=== PATIENT | male | born 1940 | race Caucasian/White ===

== ENCOUNTER 2017-07-16 04:59 | Inpatient (IN) ==
[2017-07-10 17:08] LABS: Basophils # (Auto) 0 K/mcL (0.0-0.3); Basophils % (Auto) 0.5 % (0.0-2.0); Eosinophils # (Auto) 0.2 K/mcL (0.0-0.7); Eosinophils % (Auto) 2.1 % (0.0-7.0); Lymphocytes # (Auto) 1.7 K/mcL (1.5-4.8); Lymphocytes % (Auto) 19.9 % (15.5-49.0); Mean Cell Volume 86.6 fL (80.0-100.0); Mean Corpuscular HGB Conc 32.4 g/dL (31.0-36.0); Mean Corpuscular Hemoglobin 28.1 pg (26.0-34.0); Monocytes # (Auto) 0.6 K/mcL (0.1-0.9); Monocytes % (Auto) 7.5 % (1.0-12.0); Platelet Count 256 K/mcL (140-440); RBC 4.75 M/mcL (4.50-5.90); Red Cell Distribution Width 17.6 % (11.5-14.5)
[2017-07-10 17:18] LABS: Blood Urea Nitrogen 36 mg/dl (8-23)
[2017-07-16] MEDS ORDERED: ACETAMINOPHEN 500 MG TABLET PO SCH (06:00)
[2017-07-16] MEDS ORDERED: CELECOXIB 200 MG CAPSULE PO SCH (06:00)
[2017-07-16] MEDS ORDERED: ceFAZolin 1 GM VIAL IV SCH (06:00)
[2017-07-16] MEDS ORDERED: PREGABALIN 75 MG CAPSULE PO SCH (06:00)
[2017-07-16] MEDS ORDERED: oxyCODONE 10 MG TAB.ER.12H PO SCH (06:00)
[2017-07-16 07:56] LABS: Appearance,Urine CLEAR; Bilirubin,Urine NEG (NEG); Color,Urine YELLOW; Glucose,Urine (UA) NEGATIVE (NEG); Leukocyte Esterase,Urine NEG /uL (NEG); Nitrate,Urine NEG (NEG); Protein,Urine NEG (NEG); Specific Gravity,Urine 1.012 (1.000-1.035); Urine Blood NEG mg/dL (<0.03); Urobilinogen,Urine NEG (NEG)
[2017-07-16] MEDS ORDERED: KETOROLAC 30 MG, ROPIVACAINE HCL/PF 49.5 ML, EPINEPHrine 0.5 MG, 0.9 % SODIUM CHLORIDE ... IJ ONE (08:00)
[2017-07-16] MEDS ORDERED: PROPOFOL 200 MG/20 ML VIAL IV ONE (09:20)
[2017-07-16] MEDS ORDERED: ONDANSETRON 4 MG/2 ML VIAL IV ONE (09:20)
[2017-07-16] MEDS ORDERED: PHENYLEPHRINE 10 MG/ML VIAL IV ONE (09:20)
[2017-07-16] MEDS ORDERED: EPINEPHrine 1 MG/ML AMPUL IJ ONE (09:20)
[2017-07-16] MEDS ORDERED: TRANEXAMIC ACID 1,000 MG/10 ML VIAL IV ONE (09:20)
[2017-07-16] MEDS ORDERED: MIDAZOLAM 2 MG/2 ML VIAL IV ONE (09:20)
[2017-07-16] MEDS ORDERED: KETAMINE 100 MG/ML ML IV ONE (09:20)
[2017-07-16] MEDS ORDERED: GLYCOPYRROLATE 0.2 MG/ML VIAL IV ONE (09:20)
[2017-07-16] MEDS ORDERED: BUPIVACAINE PF 0.5% 30 ML VIAL IJ ONE (09:20)
[2017-07-16] MEDS ORDERED: LIDOCAINE HCL/PF 100 MG/5 ML SYRINGE IV ONE (09:20)
[2017-07-16] MEDS ORDERED: GENTAMICIN SULFATE 800 MG/20 ML VIAL IR ONE (09:46)
[2017-07-16] MEDS ORDERED: MEPERIDINE 25 MG/ML SYRINGE IV PRN (10:11)
[2017-07-16] MEDS ORDERED: METHOCARBAMOL 1,000 MG/10 ML VIAL IV PRN (10:11)
[2017-07-16] MEDS ORDERED: IPRATROPIUM/ALBUTEROL 3 ML AMPUL.NEB NEB PRN (10:11)
[2017-07-16] MEDS ORDERED: ONDANSETRON 4 MG/2 ML VIAL IV PRN ×2 (10:11→10:39)
[2017-07-16] MEDS ORDERED: LACTATED RINGERS 1,000 ML IV SCH (10:15)
--- NOTE | 2017-07-16 10:37 | Brief Operative Note ---
Date of procedure: 07/16/17 Pre-op diagnosis: left knee loose femoral component Post-op diagnosis: same Procedure: Left knee revision femoral component Grafts/Implants: Yes Anesthesia: GETA Surgeon: Colton Cervantes Inventory Transcriber: Angel Burnette Estimated blood loss (cc): 30 Tourniquet Time (Minutes): 35 Specimens Removed/Pathology: none sent Condition: stable Disposition: PACU
[2017-07-16] MEDS ORDERED: MAGNESIUM HYDROXIDE 30 ML ORAL.SUSP PO PRN (10:39)
[2017-07-16] MEDS ORDERED: ACETAMINOPHEN 325 MG TABLET PO PRN (10:39)
[2017-07-16] MEDS ORDERED: BISACODYL 10 MG SUPP.RECT PR PRN (10:39)
[2017-07-16] MEDS ORDERED: TRANEXAMIC ACID 1,000 MG/10 ML VIAL IV SCH (10:39)
[2017-07-16] MEDS ORDERED: POLYETHYLENE GLYCOL 3350 17 GM PACKET PO PRN (10:39)
[2017-07-16] MEDS ORDERED: HYDROmorphone 2 MG/ML SYRINGE IV PRN (10:39)
[2017-07-16] MEDS ORDERED: BENZOCAINE/MENTHOL 1 LOZENGE PO PRN (10:39)
[2017-07-16] MEDS ORDERED: FLEETS ADULT ENEMA PR PRN (10:39)
[2017-07-16] MEDS ORDERED: ACETAMINOPHEN 500 MG TABLET PO PRN (10:41)
[2017-07-16] MEDS: fentaNYL 100 MCG/2 ML VIAL IV PRN ×2 (11:28→11:36)
--- NOTE | 2017-07-16 11:56 | XRay Report ---
CLINICAL INFORMATION: Postop hemiarthroplasty COMPARISON: 01/06/2017 FINDINGS: Medial tibiofemoral compartment hemiarthroplasty is anatomically aligned. No osseous abnormalities. Soft tissues swelling seen as expected. IMPRESSION: Negative Interpreted and Authenticated by: Aubrey Porter 07/16/17
[2017-07-16] MEDS: KETOROLAC 15 MG/ML VIAL IV SCH ×3 (12:05→23:53)
[2017-07-16] MEDS: 0.45 % SODIUM CHLORIDE 1,000 ML IV SCH ×2 (12:20→20:48)
[2017-07-16] MEDS: HYDROcodone/APAP 10/325MG TABLET PO PRN (14:06)
[2017-07-16] MEDS: 0.9 % SODIUM CHLORIDE 10 ML SYRINGE IV SCH ×2 (14:07→23:54)
[2017-07-16] MEDS: DOCUSATE SODIUM 100 MG CAPSULE PO SCH (20:50)
[2017-07-16] MEDS: ASPIRIN 325 MG ENTERIC COATED TABLET PO SCH (20:50)
[2017-07-16] MEDS ORDERED: FAMOTIDINE 20 MG TABLET PO SCH (21:00)
[2017-07-16] MEDS ORDERED: TEMAZEPAM 15 MG CAPSULE PO PRN (21:00)
[2017-07-16] MEDS ORDERED: SENNOSIDES 1 TABLET PO SCH (21:00)
[2017-07-17] MEDS: HYDROcodone/APAP 10/325MG TABLET PO PRN (03:08)
[2017-07-17] MEDS: KETOROLAC 15 MG/ML VIAL IV SCH (05:58)
[2017-07-17] MEDS: 0.9 % SODIUM CHLORIDE 10 ML SYRINGE IV SCH (05:59)
--- NOTE | 2017-07-17 06:39 | Operative Note ---
DATE OF OPERATION: 07/16/2017 PREOPERATIVE DIAGNOSIS: Left knee loosened femoral component of a partial knee. 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 PROCEDURE: Left femoral component revision, poly liner revision or removal. SURGEON: Colton Cervantes MD PLANT TECHNICIAN: Angel Burnette PA-C ANESTHESIA: General LMA anesthesia. COMPLICATIONS: None. DESCRIPTION OF PROCEDURE: The patient was brought to the operating room. We we confirmed the operative site and that the patient only wanted revision of the partial and not to be converted to a total in anyway because of care at home and his concerns of recovery. We then placed Ioban over the skin, exsanguinated the leg and inflated the tourniquet to 250 pounds of pressure. A midline incision was made through his prior scar which then went through the skin and then the medial capsule. 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 The lateral facet of the patella was in good repair as well as the lateral portion of the trochlear groove for the patella. The lateral compartment was completely intact with good articular cartilage and meniscus. ACL and PCL were intact. As we removed the knee through range of motion there was some motion of the femoral component. With pressure we could move the femoral component, confirming it was loose. This was removed using a fish mouthed punch and the poly liner was removed for working room. Once this was done, we then removed the membrane from the bone. This was sent for pathology for white cells. This came back with less than 3 white cells per high powered field, indicating there was no infection. Once the membrane had been debrided from the bone we then used the CarboJet to prepare the bone and drilled holes into the bone for better penetration of the cement. We then used antibiotics impregnated cement for the femoral component. A size 6 femoral component was placed and we kept the femoral component positioned with pressured the entire time, never removing the knee to make sure that there was no motion artifact. Once done it was very secure. We then trialed an 8 and then a 9 poly. The 9 poly seemed to be the most appropriate. We irrigated thoroughly and placed a 9 poly and irrigated thoroughly, and then closed the mid vastus approach with #1 Stratafix x2 sutures. The tourniquet was deflated at approximately 35 minutes. There was no complication. The patient tolerated this well. REED:mary beth Job ID: [id number] Doc ID: [id number] Colton Cervantes MD
[2017-07-17] MEDS ORDERED: OMEPRAZOLE 20 MG CAPSULE PO SCH (07:30)
--- NOTE | 2017-07-17 07:38 | Orthopedic Progress Note ---
Subjective Patient information: Note initiated : 07/17/17 at 7:37 am Service Date, if different from initiated Date: [] Patient: Aubrey Huffman 77 y/o M admitted on 07/16/17 for Revision Partial Knee Possible Total Knee. Chief Complaint: [Pt is stable this morning on post operative day 1 without any significant concerns or complaints. Patients vital signs have remained stable. Patients dressing is dry and exhibits a grossly intact neurovascular and neuromotor exam. Patients 10 point ROS is otherwise negative. ] Objective Vital signs: Vital Signs Temp Pulse Resp BP Pulse Ox 07/17/17 07:32 97.4 F 66 16 123/74 95 07/17/17 04:00 97.4 F 68 16 135/75 94 07/17/17 00:00 97.8 F 62 16 117/75 95 07/16/17 20:00 98.1 F 59 L 16 138/84 95 07/16/17 18:07 130/81 100 07/16/17 15:00 131/81 100 07/16/17 14:15 136/85 100 07/16/17 14:00 127/67 100 07/16/17 13:40 127/67 100 07/16/17 13:10 113/69 99 07/16/17 12:40 110/107 99 07/16/17 12:25 114/70 100 07/16/17 12:10 137/80 99 07/16/17 11:55 124/77 99 07/16/17 11:39 98.0 F 71 22 123/58 98 07/16/17 11:35 70 12 123/58 98 07/16/17 11:20 69 15 116/65 99 07/16/17 11:05 70 17 108/51 99 07/16/17 10:58 97.8 F 75 17 128/67 99 Intake and Output 07/16/17 07/17/17 07/17/17 21:59 05:59 13:59 Intake Total 240 / 240 300 / 300 Output Total 550 / 550 500 / 500 Balance -310 / -310 -200 / -200 Intake: Oral 240 / 240 300 / 300 Output: Urine Catheter Amount 550 / 550 500 / 500 Other: Weight 227 lb 8 oz Intake & Output: Intake & Output 07/16/17 07/17/17 07/17/17 21:59 05:59 13:59 Intake Total 240 / 240 300 / 300 Output Total 550 / 550 500 / 500 Balance -310 / -310 -200 / -200 Weight 227 lb 8 oz Intake: Oral 240 / 240 300 / 300 Output: Urine Catheter Amount 550 / 550 500 / 500 Incision clean and dry: Yes Dressing: Yes clean Weight bearing status: full Neurological exam IM: Yes motor sensory intact, Yes neurovascular intact Extremities exam IM: Yes Foot pink and warm, Yes neurovascular intact - Labs CBC & BMP: 07/17/17 04:48 07/10/17 14:55 Labs: Orthopedic Labs 07/10/17 14:55 PT 13.1 INR 1.0 APTT 30 07/17/17 07/10/17 04:48 14:55 Hgb 13.3 L Hct 35.9 L 41.1 Assessment and Plan (1) History of partial knee replacement The patient has been educated regarding dressing care, Physical Therapy recommendations, home exercises, restrictions, and follow up appointments. The patient has had all necessary DME prescribed. The patient has remained stable during their hospital course. The patient was discharge with a stable exam. Status: Acute
--- NOTE | 2017-07-17 07:40 | Discharge Summary ---
Ortho Discharge - TKA - Patient Instructions Diet: Regular Diet Activity: activity as tolerated, weight bearing as tolerated Total Knee Protocol: For Total Knee: Start ROM MARLYN with stationary bike or rocking chair. Work on gaining full extension of knee. Posterior dislocation precautions provided. Hip abductor strengthening and gait training instructions provided. Apply Cryocuff as instructed. Dressing Care: May shower in 2 days - Problem Maintenance (1) History of partial knee replacement Status: Acute - Follow Up Plan Disposition: Home, Self-Care Prognosis: Good Rehab Potential: Good I certify that the patient requires SNF services: No Overall status at discharge: patient is progressing back to baseline - Orders For Discharge Prescriptions: Docusate Sodium [Colace] 100 mg PO BID #60 cap oxyCODONE/APAP [Percocet 5-325 mg] 1 - 2 tab PO Q4H PRN #60 tab PRN Reason: Pain
[2017-07-17] MEDS: DOCUSATE SODIUM 100 MG CAPSULE PO SCH (08:51)
[2017-07-17] MEDS: ASPIRIN 325 MG ENTERIC COATED TABLET PO SCH (08:52)
[2017-07-17] MEDS ORDERED: CALCIUM W/VIT D3 500 MG TABLET PO SCH (09:00)
[2017-07-17] MEDS ORDERED: MULTIVIT,THER IRON,CA,FA & MIN 1 TABLET PO SCH (09:00)
[2017-07-17] MEDS ORDERED: MAGNESIUM OXIDE 400 MG TABLET PO SCH (09:00)
[2017-07-17] MEDS ORDERED: METOPROLOL SUCCINATE 25 MG TAB.XL.24H PO SCH (09:00)
[2017-07-17] MEDS ORDERED: HYDROCHLOROTHIAZIDE 25 MG TABLET PO SCH (09:00)
[2017-07-17] MEDS ORDERED: LOSARTAN 50 MG TABLET PO SCH (09:00)
[2017-07-17] MEDS ORDERED: [UNRECOGNIZED DRUG - OTHER] PO SCH (09:00)
--- NOTE | 2017-07-17 12:47 | Surgical Pathology Report ---
HISTOLOGY SPECIMEN MICROSCOPIC DIAGNOSIS SYNOVIUM, LEFT KNEE, BIOPSY: -- REACTIVE SYNOVIAL TISSUE WITH FIBROSIS, CHRONIC INFLAMMATION, AND FIBRINOUS SURFACE EXUDATE. -- NO SIGNIFICANT ACUTE INFLAMMATION IDENTIFIED (0-2 NEUTROPHILS PER HIGH POWER FIELD). (SE:djf) INTRAOPERATIVE CONSULTATION FROZEN SECTION DIAGNOSIS ([facility] [place], [place]) SYNOVIUM, LEFT KNEE, BIOPSY: -- LESS THAN 3 NEUTROPHILS PER HPF. (SE:sln) GROSS DESCRIPTION The specimen is received fresh for frozen section labeled with the patient identifiers and "left knee synovium" and consists of a pink-head portion of soft tissue which measures 1 x 0.5 x 0.3 cm. The specimen is entirely evaluated by frozen section and submitted for permanents as FSA. (SE:adj) Electronically Signed by: Latasha Dash D.O.
== END 2017-07-17 13:15 | disposition home or self-care (01) | DRG 468 ==
LOC: MEDSUR 04:59
PROVIDERS: ADMIT Orthopaedic Surgery; ATTEND Orthopaedic Surgery